=== PATIENT | male | born 1955 | race Caucasian/White ===

== ENCOUNTER 2021-05-25 20:54 | Emergency (ER) | payer MEDICARE, OTHER | END 2021-05-26 00:20 | disposition other institution (70) | LOC: FER 20:54 | DX: U07.1 COVID-19 (principal); N19 Unspecified kidney failure; F03.90 Unspecified dementia, unspecified severity, without behavioral disturbance, psychotic disturbance, mood disturbance, and anxiety; I10 Essential (primary) hypertension | CPT/HCPCS: 36600; 71045; 82803 ==